=== PATIENT | male | born 1980 | race Hispanic/Latino ===

== ENCOUNTER 2019-02-13 08:00 | Outpatient (CLI) | payer BC | END 2019-02-13 08:01 | disposition home or self-care (01) | LOC: C.PAT 08:00 | DX: C62.90 Malignant neoplasm of unspecified testis, unspecified whether descended or undescended (principal) ==

== ENCOUNTER 2019-02-19 08:43 | Day surgery (SDC) | payer BC ==
[2019-02-19 09:17] VITALS: BMI 29.3
[2019-02-19] MEDS ORDERED: Propofol 10 mg/ml Inj (20 ML) ONE (11:06)
[2019-02-19] MEDS ORDERED: Midazolam 2 MG/2 ML VIAL ONE (11:06)
[2019-02-19] MEDS ORDERED: Lidocaine Hydrochloride 5 ML INJ ONE (11:07)
[2019-02-19] MEDS ORDERED: Lidocaine Hydrochloride 10 ML INJ ONE (11:20)
[2019-02-19] MEDS ORDERED: Bupivacaine 0.25% 20 ML INJ IJ ONE (11:21)
[2019-02-19] MEDS ORDERED: ceFAZolin 1 gm in NS 2 GM/200 ML BAG IVPB ONE (11:21)
[2019-02-19] MEDS ORDERED: HYDROmorphone 0.5 mg/0.5 ml ISec IVP PRN (12:15)
[2019-02-19 14:30] VITALS: O2SAT 96
[2019-02-19 14:49] VITALS: RESP 18; TEMP 97.8
[2019-02-19 15:24] VITALS: BP 119/80; PULSE 75
--- NOTE | 2019-02-21 20:23 | OP ---
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 PROCEDURE: Right radical orchiectomy. SURGEON: Sonya Salcedo MD PROCED TECH: Christal Ramsay MD ANESTHESIA: General. DESCRIPTION OF PROCEDURE: With the patient in supine position and after starting anesthesia, the patient was given 2 g of Ancef. Genitalia were prepped and draped in sterile fashion from the mid abdomen down to the scrotal area. All the area draped in sterile fashion. Using Xylocaine and Marcaine in the right inguinal area using 10 mL to numb the skin incision. Right inguinal incision, transverse, incised the skin, subcutaneous tissue down to the external oblique. All bleeders were clamped and coagulated. The external ring visualized and external oblique open with the external ring. With sharp and blunt dissection, the cord isolated and using cautery and dissection, the cremaster and floor attachment all clear. The cord isolated, the Satinsky clamp applied close to the internal ring and the testicle with the tunica delivered to the wound. The testicle was isolated with tunica from the scrotal attachment and the suture using 3-0 chromic after delivering the testis from the tunica completely from the scrotum while Satinsky clamp in position, tunica opened which revealed large tumor occupying most of the right testicle and hard. After that, the tunica closed and the changing the glove and irrigating the area performed a couple of times. The cord proximal to Satinsky, tied the vessel, the vas and some connective tissue. Using 2-0 silk double tie, first the vessel and then the vas with some vascularity around, then the rest of the cord. The testis with the tumor totally with the cord down to the internal ring removed in total. All the floor of the inguinal area irrigated well and there was no active bleeding. Using 2-0 Vicryl and 3-0 Vicryl to close the external oblique continuously, subcutaneous closed using 3-0 Vicryl. The area irrigated. The subcutaneous tissue also approximated with few sutures of 3-0 Vicryl. The skin closed using aida. Dressing applied to the wound and fluff with support to the scrotal area to prevent collection. The patient tolerated the procedure well and transferred to the recovery room in stable condition. Sonya Salcedo MD [facility] # [id number]
== END 2019-02-19 15:39 | disposition home or self-care (01) ==
LOC: C.SDS 08:43 → EDSTATUS 12:00 → C.SDS 15:39
PROVIDERS: ATTEND Specialist
DX: D07.69 Carcinoma in situ of other male genital organs (principal)
CPT/HCPCS: 54530; 88305; J0690; J1100; J1885; J2250; J2405; J2704; J3010